=== PATIENT | male | born 1960 | race Caucasian/White ===

== ENCOUNTER → 2018-05-08 | Outpatient (CLI) | payer BC | END | disposition home or self-care (01) | LOC: RAD 10:28 | DX: M16.12 Unilateral primary osteoarthritis, left hip (principal) ==

== ENCOUNTER 2020-08-07 10:51 | Emergency (ER) | payer OTHER, BC | END 2020-08-07 11:39 | disposition home or self-care (01) | LOC: ED 10:51 | DX: S01.81XA Laceration without foreign body of other part of head, initial encounter (principal); W31.9XXA Contact with unspecified machinery, initial encounter; Y93.89 Activity, other specified; Y92.89 Other specified places as the place of occurrence of the external cause; Y99.8 Other external cause status ==

== ENCOUNTER 2023-02-04 17:40 | Emergency (ER) | payer BC ==
[~2023-02-04] VITALS: Ht 175.2 cm; Wt 83.9 kg
[2023-02-04] MEDS ORDERED: METFORMIN HCL1000 M2 PO (17:56)
[2023-02-04] MEDS ORDERED: INSULIN (17:57)
[2023-02-04] MEDS ORDERED: PREDNISONE20 M1 PO (19:32)
== END 2023-02-04 20:00 | disposition home or self-care (01) ==
LOC: ED 17:40
DX: L29.9 Pruritus, unspecified (principal); T78.40XA Allergy, unspecified, initial encounter; X58.XXXA Exposure to other specified factors, initial encounter